=== PATIENT | male | born 1930 | race Caucasian/White ===

== ENCOUNTER 2021-10-07 10:19 | Emergency (ER) | payer MEDICARE ==
[~2021-10-07] VITALS: Ht 160 cm; Wt 63.5 kg
[2021-10-07 10:19] VITALS: BP_SYST 116
[2021-10-07] MEDS ORDERED: IBUPROFEN 600 MG TABLET PO ONE (10:45)
[2021-10-07] MEDS ORDERED: ACETAMINOPHEN 500 MG TABLET PO ONE (10:45)
[2021-10-07] MEDS ORDERED: CYCLOBENZAPRINE HCL 10 MG TABLET (FLEXERIL) PO ONE (12:00)
[2021-10-07] MEDS ORDERED: LIDOCAINE PATCH 5% 1 EA TP SCH (12:00)
[2021-10-07] MEDS ORDERED: LIDOCAINE PATCH 5% 1 EA TP ONE (12:00)
[2021-10-07] MEDS ORDERED: CYCL10TA24 PO (12:21)
[2021-10-07] MEDS ORDERED: ACET325T53 PO (12:23)
[2021-10-07] MEDS ORDERED: LIDO1ADH22 TP (12:23)
[2021-10-07 12:45] VITALS: BP_SYST 116
== END 2021-10-07 12:45 | disposition home or self-care (01) ==
LOC: SED 10:19
DX: S20.212A Contusion of left front wall of thorax, initial encounter (principal); W10.9XXA Fall (on) (from) unspecified stairs and steps, initial encounter; Y93.89 Activity, other specified; Y92.89 Other specified places as the place of occurrence of the external cause; Y99.8 Other external cause status
CPT/HCPCS: 71250-TC; 76376; 99284